=== PATIENT | female | born 1985 ===

== ENCOUNTER 2022-11-05 06:13 | Inpatient (IN) | payer OTHER ==
[~2022-11-05] VITALS: Ht 149.9 cm; Wt 3.6 kg
[2022-11-05] MEDS ORDERED: PRENATAL TABLE1 EAC1 PO (07:13)
== END 2022-11-09 16:25 | disposition home or self-care (01) | DRG 788 ==
LOC: LDR 06:13 → O/R 11-06 16:28 → OB/GYN 11-06 17:52
PROVIDERS: ADMIT Obstetrics & Gynecology Obstetrics; ATTEND Obstetrics & Gynecology Obstetrics
PROC: 3E0P7VZ Introduction of Hormone into Female Reproductive, Via Natural or Artificial Opening (ICD-10-PCS; 2022-11-05)
PROC: 4A1HXCZ Monitoring of Products of Conception, Cardiac Rate, External Approach (ICD-10-PCS; 2022-11-05)
PROC: 3E033VJ Introduction of Other Hormone into Peripheral Vein, Percutaneous Approach (ICD-10-PCS; 2022-11-06)
PROC: 10D00Z1 Extraction of Products of Conception, Low, Open Approach (ICD-10-PCS; principal; 2022-11-06 16:30)
DX: O61.0 Failed medical induction of labor (principal); Z3A.39 39 weeks gestation of pregnancy; Z37.0 Single live birth; Z20.822 Contact with and (suspected) exposure to COVID-19